=== PATIENT | female | born 1955 | race Caucasian/White ===

== ENCOUNTER 2023-02-26 17:10 | Emergency (ER) | payer MEDICARE, OTHER, SELFPAY ==
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
[2023-02-26 17:21] VITALS: BP 168/90; PULSE 96; O2SAT 98
[2023-02-26 17:27] VITALS: BP 161/84; PULSE 88; RESP 16; TEMP 36.7; O2SAT 97; BMI 26.6
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
== END 2023-02-26 20:19 | disposition home or self-care (01) ==
PROVIDERS: Emergency Provider Internal Medicine
DX: R51.9 Headache, unspecified (principal)
CPT/HCPCS: 70450; 99282